=== PATIENT | female | born 1985 | race Caucasian/White ===

== ENCOUNTER 2017-12-15 22:59 | Emergency (ER) | payer SELFPAY ==
[~2017-12-15] VITALS: Ht 157.5 cm; Wt 59.6 kg
[2017-12-15] MEDS ORDERED: ULTRAM50 M1 PO (23:58)
[2017-12-15] MEDS ORDERED: BACTRIM DS1 TAB PO (23:58)
[2017-12-16 00:47] VITALS: BP 130/72
== END 2017-12-16 00:42 | disposition home or self-care (01) | DRG 759 ==
LOC: ED 22:59
DX: N75.1 Abscess of Bartholin's gland (principal)